=== PATIENT | male | born 1990 | race Caucasian/White ===

== ENCOUNTER 2017-09-24 11:15 | Emergency (ER) | payer MEDICAID, OTHER ==
[~2017-09-24] VITALS: Ht 175.3 cm; Wt 82.0 kg
[~2017-09-24 11:15] MED LIST: TYLE3 PO; Z.0.NO CURRENT MEDS
[2017-09-24 11:16] VITALS: BP 129/84; PULSE 77; RESP 18; TEMP 97.9; O2SAT 99
--- NOTE | 2017-09-24 11:39 | PD ---
HPI Chief Complaint: Injury Time Seen by Provider: 11:26 Travel History International Travel<30 days: No Contact w/Intl Traveler<30days: No Traveled to known affect area: No History of Present Illness HPI 26-year-old male presents emergency department for evaluation of left second toe pain after a lateral distraction injury that occurred yesterday while practicing abdulkadir. Patient states that he had his toe caught in a sleeve and resulted in lateral displacement of his toe. Patient states that he is having a difficult time walking because of the pain. Pain is mild to moderate in severity, nonradiating, aching. Patient points to the middle phalanges of the second toe where he is having pain. Denies numbness tingling. Says he is able to move the toe however this is painful. He denies chronic medical issues medication use. Patient does not smoke. PFSH Past Medical History Medical History: Denies Significant Hx ADHD: No Cancer: No Cardiovascular Problems: No Diabetes: No Diminished Hearing: No Psychiatric: Yes (ANGER ISSUES.) Migraines: Yes Seizures: No Thyroid Disease: No Ulcer: No Tetanus Vaccination: Unknown ?: Not Past Surgical History Surgical History: No Previous Surgery Appendectomy: No Cholecystectomy: No Other Surgery: No Social History Alcohol Use: Yes (OCC) Tobacco Use: No Substance Use: Yes Allergies-Medications (Allergen,Severity, Reaction): Coded Allergies: No Known Allergies (Verified Adverse Reaction, Unknown, 09/24/17) Reported Meds & Prescriptions Reported Meds & Active Scripts Active No Active Prescriptions or Reported Medications Review of Systems Except as stated in HPI: all other systems reviewed are Neg Physical Exam Narrative GENERAL: Well-nourished, well-developed patient. SKIN: Focused skin assessment warm/dry. HEAD: Normocephalic. EYES: No scleral icterus. No injection or drainage. NECK: Supple, trachea midline. No JVD or lymphadenopathy. CARDIOVASCULAR: Regular rate and rhythm without murmurs, gallops, or rubs. RESPIRATORY: Breath sounds equal bilaterally. No accessory muscle use. MUSCULOSKELETAL: No cyanosis, or edema. Left foot-tenderness palpation to the left second toe MTP and distal. Ecchymosis present about the middle phalanges with accompanying tenderness to palpation. Neurovascular intact. No crepitus noted. There is some medial displacement of the toe. BACK: Nontender without obvious deformity. No CVA tenderness. Data Data Last Documented VS Vital Signs Date Time Temp Pulse Resp B/P (MAP) Pulse Ox O2 Delivery O2 Flow Rate FiO2 09/24/17 11:16 97.9 77 18 129/84 (99) 99 Orders Orders Foot, Complete ([id number]) (09/24/17 ) Acetamin-Hydrocod 325-5 Mg ([place]oh 5-325 (09/24/17 13:00) Foot, One View (09/24/17 ) Support Splint (09/24/17 14:06) Mandatory Outpatient Referral (09/24/17 14:10) Ed Discharge Order (09/24/17 14:10) MDM Medical Decision Making Medical Screen Exam Complete: Yes Emergency Medical Condition: Yes Differential Diagnosis Left second toe bursitis, cellulitis, fracture, osteonecrosis, sprain, strain Narrative Course 26-year-old male presents emergency department for evaluation of left second toe pain after a lateral distraction injury that occurred yesterday while practicing abdulkadir. Patient states that he had his toe caught in a sleeve and resulted in lateral displacement of his toe. Patient states that he is having a difficult time walking because of the pain. Pain is mild to moderate in severity, nonradiating, aching. Patient points to the middle phalanges of the second toe where he is having pain. Denies numbness tingling. Says he is able to move the toe however this is painful. He denies chronic medical issues medication use. Patient does not smoke. Vital signs are stable. Physical exam findings consistent with a left second toe fracture about the middle phalanges versus sprain versus strain. Is neurovascularly intact. Hydrocodone for pain. Last Impressions Foot X-Ray 09/24/17 0000 Signed Impressions: Service Date/Time: September 12:56 - CONCLUSION: 1. Persistent mild subluxation/dislocation of the second PIP joint. No fracture. Geoffrey Villalobos MD Foot X-Ray 09/24/17 0000 Signed Impressions: Service Date/Time: September 11:54 - CONCLUSION: Subluxation/dislocation at the second PIP joint. Edwin Cochran MD After the first x-ray, the second toe was christine taped to the third toe. A repeat x-ray showed persistent subluxation. I placed a call to Dr. Tabares,. She advised to keep the christine tape and paste and postop shoe. Says that she will see this patient tomorrow at 12:30 PM in her office. I gave the patient her office information advised that he follow-up and arrive at 12p. Patient states understanding will comply. Diagnosis Primary Impression: Toe dislocation Qualified Codes: S93.105A - Unspecified dislocation of left toe(s), initial encounter Referrals: Neuropsychologist Primary Care Physician Departure Forms: Tests/Procedures, Work Release Enter return to work date: September 28, 2017 Special Instructions: Avoid excessive walking or pressure on toe. Additional Instructions: You have an appointment with Dr. Tabares, tomorrow at 12:30 PM. I recommend you arrive at 12 PM. Her office is located at [address] [place] [address]. [place] [facility] [place] [facility] [place]. Their phone number is [phone]. Use ice or heat for symptom relief. If no contraindications, you may use Tylenol or Motrin per package instructions for your pain. Elevate the joint above the heart to reduce swelling. You may use compression with Mendez wrap or similar to reduce swelling. If symptoms persist or worsen, return to the emergency department. Follow up with your primary care physician within 2 days. Scripts No Active Prescriptions or Reported Meds Disposition: 01 DISCHARGE HOME Condition: Stable Izabel Ewing September 24, 2017 11:39
--- NOTE | 2017-09-24 12:32 | RADRPT ---
EXAM DATE/TIME: 09/24/2017 11:54 [facility] COMPARISON: No previous studies available for comparison. INDICATIONS : Injuried 2nd digit at karate last night. MEDICAL HISTORY : None. SURGICAL HISTORY : None. ENCOUNTER: Initial ACUITY: 1 day PAIN SCORE: 8/10 LOCATION: Left Foot FINDINGS: There is subluxation/dislocation at the second PIP joint with the middle phalanx displaced medially a nd dorsally. No fracture is seen. CONCLUSION: Subluxation/dislocation at the second PIP joint. Edwin Cochran MD on September 24, 2017 at 12:27 Board Certified Radiologist. This report was verified electronically.
[2017-09-24] MEDS ORDERED: ACETAMINOPHEN/HYDROcodone 325 MG/5 MG TAB PO ONE (13:00)
--- NOTE | 2017-09-24 13:40 | RADRPT ---
EXAM DATE/TIME: 09/24/2017 12:56 [facility] COMPARISON: FOOT LEFT COMPLETE ([id number]), September 24, 2017, 11:54. INDICATIONS : Post reduction left 2nd digit. MEDICAL HISTORY : None. SURGICAL HISTORY : None. ENCOUNTER: Subsequent ACUITY: 1 day PAIN SCORE: 7/10 LOCATION: Left 2nd digit FINDINGS: Single view of the left foot again demonstrates persistent mild subluxation/dislocation of the second PIP joint. Osseous structures are intact without acute bony fracture. CONCLUSION: 1. Persistent mild subluxation/dislocation of the second PIP joint. No fracture. Geoffrey Villalobos MD on September 24, 2017 at 13:36 Board Certified Radiologist. This report was verified electronically.
== END 2017-09-24 14:20 | disposition home or self-care (01) ==
LOC: PHEFT 11:15
DX: S93.115A Dislocation of interphalangeal joint of left lesser toe(s), initial encounter (principal); Y93.75 Activity, martial arts
CPT/HCPCS: 73620; 73630; 99283; L3260